=== PATIENT | male | born 1975 | race Caucasian/White ===

== ENCOUNTER 2019-02-26 01:10 | Emergency (ER) | payer SELFPAY ==
[2019-02-26] MEDS ORDERED: SODIUM CHLORIDE 1,000 ML IV STA (01:16)
[2019-02-26] MEDS ORDERED: FAMOTIDINE 20 MG/50 ML IVPB 20 MG/50 ML MG IVPB ONE (01:16)
--- NOTE | 2019-02-26 01:16 | PDOC ---
Attending Attestation - Resident Resident Name: Luz ElenaTemitope - ED Attending Attestation I have performed the following: I have examined & evaluated the patient, The case was reviewed & discussed with the resident, I agree w/resident's findings & plan - HPI HPI: 02/26/19 02:05 see resident hpi - Physicial Exam PE: 02/26/19 02:05 agree with resident exam - Medical Decision Making 02/26/19 02:05 43-year-old male with diffuse body rash and itching status post possible antibiotic use IV Benadryl, steroids and Pepcid There is no airway compromise Plan for eventual DC with a Medrol Dosepak, Benadryl as needed and Pepcid with primary care follow-up
[2019-02-26] MEDS ORDERED: DEXAMETHASONE SOD PHOSPHATE 10 MG/1 ML VIAL IVPUSH ONE (01:20)
[2019-02-26 01:28] VITALS: BMI 28.8
[2019-02-26 01:43] LABS: BASO % 0.6 % (0-2.0); EOS % 0.7 % (0-4.5); HEMATOCRIT 41.5 % (35.4-49); HEMOGLOBIN 14.8 GM/dL (11.7-16.9); LYMPH % 19.9 % (8-40); MCH 30.8 pg (25.7-33.7); MCHC 35.6 g/dl (32.0-35.9); MEAN CELL VOLUME 86.7 fl (80-96); MEAN PLT VOLUME 8.4 fl (7.5-11.1); MONO % 10.7 % (3.8-10.2); NEUT % 68.1 % (42.8-82.8); PLATELET COUNT 255 K/MM3 (134-434); RBC 4.78 M/mm3 (4.00-5.60); RDW 14.1 % (11.9-15.9); WHITE BLOOD COUNT 12.7 K/mm3 (4.0-10.0)
--- NOTE | 2019-02-26 02:21 | PDOC ---
History of Present Illness - General Chief Complaint: Allergic Reaction Stated Complaint: ALLERGIC REACTION Time Seen by Provider: 02/26/19 01:01 EST History Source: Patient Exam Limitations: Language Barrier - History of Present Illness Initial Comments: 02/26/19 04:25 43y M with no significant PMH presenting to ED with complaints of rash and itchiness since yesterday. Pt states he had a ham and cheese sandwich and developed itchiness in the arms and back. He went to a hospital and was given an "antibiotic" and was told to take Motrin and Tylenol as needed. He states that the itchiness has not stopped and also feels itchiness on the lips. Denies worsening of symptoms, worsening rash, sob, wheezing, vomiting, diarrhea, abdominal pain, new medications, recent travel, bug bites. PMD: none PMH: none PSH: none Allergies; nkda Social: a few cigarettes/week Past History - Past Medical History Allergies/Adverse Reactions: Allergies Allergy/AdvReac Type Severity Reaction Status Date / Time No Known Allergies Allergy Verified 02/26/19 01:28 EST Home Medications: Ambulatory Orders Diphenhydramine HCl [Benadryl -] 25 mg PO Q8H #21 capsule 02/26/19 Famotidine [Pepcid -] 20 mg PO DAILY #7 tablet 02/26/19 Methylprednisolone [Medrol Dose Cullen] 4 mg PO ASDIR #21 tablet 02/26/19 COPD: No - Immunization History Immunization Up to Date: Yes - Psycho Social/Smoking Cessation Hx Smoking History: Current some day smoker Have you smoked in the past 12 months: Yes Number of Cigarettes Smoked Daily: 2 Information on smoking cessation initiated: Yes Hx Alcohol Use: No Drug/Substance Use Hx: No Review of Systems - Review of Systems Constitutional: No: Chills, Fever HEENTM: Yes: See HPI. No: Throat Pain, Throat Swelling Respiratory: No: Symptoms reported Cardiac (ROS): No: Symptoms Reported ABD/GI: No: Symptoms Reported : No: Symptoms Reported Musculoskeletal: No: Symptoms Reported Integumentary: Yes: See HPI Neurological: No: Symptoms reported *Physical Exam - Vital Signs Last Vital Signs Temp Pulse Resp BP Pulse Ox 99.4 F 82 16 119/78 96 02/26/19 01:19 EST 02/26/19 01:19 EST 02/26/19 01:19 EST 02/26/19 01:19 EST 02/26/19 01:19 EST - Physical Exam General Appearance: Yes: Nourished, Appropriately Dressed. No: Apparent Distress HEENT: positive: EOMI, KATY, Pharynx Normal. negative: Nasal Congestion, Lesions, Jaquez, Excessive drooling Neck: positive: Trachea midline, Supple. negative: Stridor, Lymphadenopathy (R) , Lymphadenopathy (L) Respiratory/Chest: positive: Lungs Clear, Normal Breath Sounds. negative: Crackles, Rales, Rhonchi, Stridor, Wheezing Cardiovascular: positive: Regular Rhythm, Regular Rate, S1, S2. negative: Edema , JVD, Murmur Vascular Pulses: Dorsalis-Pedis (R): 2+, Doralis-Pedis (L): 2+ Gastrointestinal/Abdominal: positive: Normal Bowel Sounds, Soft. negative: Tender Musculoskeletal: negative: CVA Tenderness Extremity: negative: Swelling, Calf Tenderness, Erythema Integumentary: positive: Normal Color, Dry, Warm, Rash (diffuse lacy erythemtous rash on arms bilaterally) Neurologic: positive: classification officer II-XII NML intact, Fully Oriented, Alert, Normal Mood/ Affect, Normal Response, Motor Strength 08/28 ED Treatment Course - LABORATORY CBC & Chemistry Diagram: 02/26/19 01:30 EST 02/26/19 01:30 EST - ADDITIONAL ORDERS Additional order review: 02/26/19 01:30 EST RBC 4.78 MCV 86.7 MCHC 35.6 RDW 14.1 MPV 8.4 Neutrophils % 68.1 Lymphocytes % 19.9 Monocytes % 10.7 H Eosinophils % 0.7 Basophils % 0.6 - Medications Given in the ED: ED Medications Discontinued Medications Generic Name Dose Route Start Last Admin Trade Name Freq PRN Reason Stop Dose Admin Dexamethasone Sodium Phosphate 10 mg 02/26/19 01:20 EST 02/26/19 01:55 EST Decadron Injection - IVPUSH 02/26/19 01:21 EST 10 mg ONCE ONE Administration Diphenhydramine HCl 25 mg 02/26/19 01:16 EST 02/26/19 01:55 EST Benadryl Injection - IVPUSH 02/26/19 01:17 EST 25 mg ONCE ONE Administration Famotidine/Sodium Chloride 20 mg in 50 mls @ 100 mls/hr 02/26/19 01:16 EST 01:55 EST Pepcid 20 Mg Premixed Ivpb - IVPB 02/26/19 01:45 EST 100 mls/hr ONCE ONE Administration Sodium Chloride 1,000 mls @ 1,000 mls/hr 02/26/19 01:16 EST 02/26/19 01:55 EST Normal Saline - IV 02/26/19 02:15 1,000 mls/hr ASDIR STA Administration Medical Decision Making - Medical Decision Making 02/26/19 04:28 43y m presenting to ED for pruritis and rash. vitals wnl likely allergic reaction to a substance, likely food. no airway compromise. no anaphylaxis will draw basic labs -benadryl, decadron, pepcid, iv fluids reassess pt feeling better, pending chem. rx for medrol, pepcid and benadryl sent to pharmacy, will provide referral to [facility] for pmd. given return precautions. 02/26/19 05:36 chem still pending, will call if abnormal, pt agrees to plan. Discharge - Discharge Information Problems reviewed: Yes Clinical Impression/Diagnosis: Allergic reaction Qualifiers: Encounter type: initial encounter Qualified Code(s): T78.40XA - Allergy, unspecified, initial encounter Condition: Improved Disposition: HOME - Admission No - Additional Discharge Information Prescriptions: Diphenhydramine HCl [Benadryl -] 25 mg PO Q8H #21 capsule Famotidine [Pepcid -] 20 mg PO DAILY #7 tablet Methylprednisolone [Medrol Dose Cullen] 4 mg PO ASDIR #21 tablet - Follow up/Referral Referrals: [facility] [place] [Provider Group] - Patient Discharge Instructions Patient Printed Discharge Instructions: DI for General Allergic Reactions Additional Instructions: Te vieron en la lefty de emergencias hoy por zunilda erupcin. Creo que esta es zunilda reaccin alrgica. Recomiendo gabriel Benadryl para la picazn. Tambin se envi zunilda receta para Pepcid y Medrol (esteroide) a braden farmacia, tome segn las indicaciones. Regrese a la lefty de emergencias por empeoramiento de la erupcin cutnea, picazn, dificultad para respirar, dolor en el pecho o si se desarrolla algn sntoma nuevo o preocupante. Chaitanya You were seen in the emergency room today for a rash. I think this is an allergic reaction. I recommend taking Benadryl for the itchiness. A prescription for Pepcid and Medrol (steroid) was also sent to your pharmacy, take as directed. come back to the emergency room for worsening rash, itchiness, difficulty breathing, chest pain or if any new or concerning symptom develops. Thank you - Post Discharge Activity
[2019-02-26 05:51] VITALS: BP 118/76; PULSE 83; TEMP 98
[2019-02-26 06:47] LABS: TOT PROT 6.6 g/dl (6.4-8.2)
[2019-02-26 07:24] LABS: ALBUMIN 3.5 g/dl (3.4-5.0); BILIRUBIN,TOTAL 0.6 mg/dL (0.2-1); BLOOD UREA NITROGEN 18.2 mg/dL (7-18); POTASSIUM 3.5 mmol/L (3.5-5.1)
== END 2019-02-26 05:50 | disposition home or self-care (01) ==
LOC: JER 01:10
PROC: 3E033GC Introduction of Other Therapeutic Substance into Peripheral Vein, Percutaneous Approach (ICD-10-PCS; principal; 2019-02-26)
PROC: 3E0333Z Introduction of Anti-inflammatory into Peripheral Vein, Percutaneous Approach (ICD-10-PCS; 2019-02-26)
PROC: 3E033GC Introduction of Other Therapeutic Substance into Peripheral Vein, Percutaneous Approach (ICD-10-PCS; 2019-02-26)
DX: T78.40XA Allergy, unspecified, initial encounter (principal)
CPT/HCPCS: 36415; 80053; 85025; 99283-25; J1100; J7030